=== PATIENT | male | born 1940 | race Two or more races ===

== ENCOUNTER 2025-05-25 17:35 | Emergency (ER) | payer OTHER ==
[~2025-05-25] VITALS: Ht 182.9 cm; Wt 104.3 kg
[2025-05-25] MEDS ORDERED: METFORMIN HCL500 M3 PO (18:33)
[2025-05-25] MEDS ORDERED: MEMANTINE HCL1 EACH PO (18:33)
[2025-05-25] MEDS ORDERED: ASPIRIN81 MG PO (18:33)
[2025-05-25] MEDS ORDERED: CIPROFLOXACIN IN 5 % DEXTROSE 400 MG/200 ML PIGGYBAG IV STA (19:03)
[2025-05-25 20:13] LABS: BASO % 0.4 % (0.1-1.2); EOS # 0.32 (0.04-0.54); EOS % 3.2 % (0.7-7.0); LYMPH # 3.37 (1.18-3.74); LYMPH % 33.8 % (19.3-53.1); MEAN PLATELET VOLUME 8.90 fl (9.4-12.4); MONO # 0.77 (0.24-0.82); MONO % 7.7 % (4.7-12.5); NEUT # 5.42 (1.56-6.13); NEUT % 54.5 % (34.0-71.1); RED CELL DISTRIBUTION WIDTH 12.8 % (11.6-14.4)
[2025-05-25 20:55] LABS: URINE APPEARANCE Turbid; URINE BILIRRUBIN Small (NEGATIVE); URINE BLOOD Trace; URINE COLOR Red; URINE GLUCOSE Negative (NEGATIVE); URINE KETONE 15 (NEGATIVE); URINE LEUKOCYTE Large; URINE NITRATE Positive; URINE PROTEIN 30 (NEGATIVE); URINE UROBILINOGEN 0.2 E.U./dl
[2025-05-25 20:59] LABS: URINE EPITHELIAL CELLS 46.8 uL (0.0-38.8); URINE WBC 5307.1 uL (0.0-23.2)
[2025-05-25 21:34] LABS: URINE BACTERIA > 9821.5 uL (0.0-1933); URINE CAST 0.00 uL (0.0-1.40)
[2025-05-25 21:40] LABS: URINE MUCUS SCANT
[2025-05-25 21:41] LABS: URINE RBC > 10558.9 uL (0.0-20.8)
[2025-05-25 21:43] LABS: TYPE CELLS SQUAMOUS
[2025-05-25 22:11] LABS: BUN CREA RATIO 14.0 (7.0-25.0); CREATININE SERUM 1.18 mg/dL (0.70-1.30); GFR 58.53
[2025-05-25 22:37] LABS: OSMOLALITY SERUM 294.0 MOSM/KG (275-295)
[2025-05-25 22:39] LABS: GLUCOSE FASTING 931.0 mg/dL (65-100)
== END 2025-05-25 22:10 | disposition home or self-care (01) ==
LOC: ER 17:35
DX: N39.0 Urinary tract infection, site not specified (principal); R30.0 Dysuria; G30.8 Other Alzheimer's disease; F02.80 Dementia in other diseases classified elsewhere, unspecified severity, without behavioral disturbance, psychotic disturbance, mood disturbance, and anxiety; N40.0 Benign prostatic hyperplasia without lower urinary tract symptoms; I10 Essential (primary) hypertension; E11.65 Type 2 diabetes mellitus with hyperglycemia; Z79.84 Long term (current) use of oral hypoglycemic drugs
CPT/HCPCS: 36415; 96365; 99282; J0744